=== PATIENT | female | born 1950 | race Caucasian/White ===

== ENCOUNTER 2017-06-20 14:14 | Inpatient (IN) ==
[2017-06-20 14:46] LABS: Hemoglobin 11.8 g/dL (11.5-15.4); Mean Corpuscular HGB Conc 30.3 g/dL (31.6-35.5); Mean Corpuscular Hemoglobin 26.5 pg (28.0-33.3); Mean Corpuscular Volume 87.4 fL (83.0-100.0); Mean Platelet Volume 9.3 fL (9.4-12.4); Platelet Count 269 K/mcL (140-400); Red Blood Count 4.46 M/mcL (3.82-4.97); Red Cell Distribution Width 12.6 % (11.5-14.5)
--- NOTE | 2017-06-20 14:51 | Emergency Department Note ---
Disposition Clinical Impression: Community acquired pneumonia Disposition: Admitted As Inpatient Condition: Fair SOB HPI - General Chief Complaint: ED Shortness of Breath/Dyspnea Stated Complaint: HANK Time Seen by Provider: 06/20/17 14:27 Source: patient Limitations: no limitations Vital Signs Reviewed: Yes - History of Present Illness Patient is a 67-year-old female past medical history of CHF and on coumadin presented to the ED by request of Dr. Da Silva after an abnormal chest x-ray possible right middle lobe pneumonia. For the past 1.5 weeks , patient has been having increased shortness of breath, productive cough with white sputmum and chest pain worse with exertion. Today patient went to see her hat braider Dr. Da Silva this morning who did a CXR. Edema of her LEs has not been worst recently. Today she admits to increased shortness of breath at rest. Patient has not recently been to health care facility or hospitalized. Patient currently denies fever, hemoptysis, chest pain, dizziness, dysuria, hematuria, nausea, headache, melena. - Related Data Home Medications Medication Instructions Recorded Confirmed Furosemide [Lasix] 40 mg PO DAILY 05/23/17 05/23/17 Metoprolol [Lopressor] 150 mg PO BID 05/23/17 05/23/17 Potassium Chloride 20 meq PO DAILY 05/23/17 05/23/17 Warfarin [Coumadin] 5 mg PO DAILY 05/23/17 05/23/17 Allergies Allergy/AdvReac Type Severity Reaction Status Date / Time Sulfa (Sulfonamide AdvReac Unknown Nausea Verified 05/23/17 09:23 Antibiotics) aspirin AdvReac Nausea Verified 05/23/17 09:23 Constitutional: Reports: chills. Denies: fever Cardiovascular: Denies: chest pain Respiratory: Reports: cough, sputum production. Denies: wheezes Genitourinary: Denies: dysuria, hematuria Integumentary: Denies: rash Neurological: Denies: headache Past Medical History - Past Medical History Medical history: Reports: CHF, hypertension, other Surgical history: Reports: cholecystectomy, heart valve replacement, hysterectomy Psychiatric history: Reports: no psych history SEARCH DEVELOPER history: Reports: no SEARCH DEVELOPER history - Social History Smoking Status: Former smoker Smokeless Tobacco Status: No Alcohol use: Reports: none Drug use: Reports: none Physical Exam Constitutional: Alert, in no acute distress, well nourished, well developed. Head: Normocephalic, atraumatic, normal contour and symmetric, no masses, lesions or scars Heart: Normal, regular rate and rhythm, no murmurs Lungs: decrease lung sounds on R, L crackles present, no wheezes, rales, or rhonchi Abdomen: Soft, nondistended, nontender, and no masses palpable, bowel sounds present and normal, no guarding or rigidity. Extremities: +1 pitting edema No clubbing, cyanosis, radial pulse +2/4, capillary refill <2sec. Skin: Skin warm and dry, no lesions, no rashes, no jaundice Neurologic: Cranial nerves II through XII grossly intact, no focal deficits, strength within normal limits in all extremities Psych: Cooperative with exam, good eye contact, cognitive function intact, judgment good insight good, speech clear, thought process logical, and goal directed - General Limitations: no limitations General appearance: alert Course Course Narrative: Patient's CXR from earlier today showed a right middle lobe opacification. Patient's labs showed WBCs of 6.7 but segmented neutrophils of 66%, and a BNP of 191 suggesting that the increase SOB is most likely due to pneumonia and not CHF. D-dimer was negative and therefore she does not have a PE. Sputum cultures were obtained and ceftriaxone 1 mg and Zithromax 500 mg given for community acquired pneumonia. Due to patient's hypoxia with minimum exertion patient will be admitted to the floor for community-acquired pneumonia and hypoxia. Vital Signs Temperature 97.5 F L 06/20/17 14:20 Pulse Rate 70 06/20/17 14:20 Respiratory Rate 20 06/20/17 14:20 Blood Pressure 157/4 06/20/17 14:20 O2 Sat by Pulse Oximetry 95 06/20/17 14:20 Temperature 97.5 F L 06/20/17 14:20 Pulse Rate 70 06/20/17 14:20 Respiratory Rate 18 06/20/17 17:43 Blood Pressure 154/93 06/20/17 17:43 O2 Sat by Pulse Oximetry 06/20/17 14:20 Oxygen Delivery Oxygen Delivery Room Air Shortness of Breath/Dyspnea - Medical Records Medical records reviewed: Yes I reviewed the patient's medical records. cxr today right middle lobe opacity. - Lab Data Lab results reviewed: Yes I reviewed the patient's lab results. Lab results narrative: All Lab Results (24 Hours) 06/20/17 06/20/17 06/20/17 Range/Units 14:39 14:39 14:39 WBC 6.7 (4.3-11.1) K/mcL RBC 4.46 (3.82-4.97) M/mcL Hgb 11.8 (11.5-15.4) g/dL Hct 39.0 (35.3-44.9) % MCV 87.4 (83.0-100.0) fL MCH 26.5 L (28.0-33.3) pg MCHC 30.3 L (31.6-35.5) g/dL RDW 12.6 (11.5-14.5) % Plt Count 269 (140-400) K/mcL MPV 9.3 L (9.4-12.4) fL Seg Neutrophils % 66.0 % Lymphocytes % 26.0 % Monocytes % 8.0 % Neutrophils # 4.4 (1.6-8.9) K/mcL Lymphocytes # 1.7 (0.6-4.6) K/mcL Monocytes # 0.5 (0.0-1.3) K/mcL Reactive Lymphocytes Present A (Not Present) Platelet Estimate Normal (Normal) Immature Plt Fraction 3.0 (1.1-6.1) % Sodium 132 L (136-145) mEq/L Potassium 3.8 (3.5-4.5) mEq/L Chloride 95 L (98-109) mEq/L Carbon Dioxide 34 H (19-29) mEq/L BUN 11 (7-20) mg/dL Creatinine 0.81 (0.57-1.11) mg/dL Est GFR ( Amer) > 60 (> 60) Est GFR (Non-Af Amer) > 60 (> 60) BUN/Creatinine Ratio 14 (6-26) Glucose 99 (70-99) mg/dL Calculated Osmolality 273 L (280-300) Calcium 8.9 (8.6-10.8) mg/dL Troponin I 0.01 (0-0.03) ng/mL B-Natriuretic Peptide (0-100) pg/mL 06/20/17 Range/Units 14:39 WBC (4.3-11.1) K/mcL RBC (3.82-4.97) M/mcL Hgb (11.5-15.4) g/dL Hct (35.3-44.9) % MCV (83.0-100.0) fL MCH (28.0-33.3) pg MCHC (31.6-35.5) g/dL RDW (11.5-14.5) % Plt Count (140-400) K/mcL MPV (9.4-12.4) fL Seg Neutrophils % % Lymphocytes % % Monocytes % % Neutrophils # (1.6-8.9) K/mcL Lymphocytes # (0.6-4.6) K/mcL Monocytes # (0.0-1.3) K/mcL Reactive Lymphocytes (Not Present) Platelet Estimate (Normal) Immature Plt Fraction (1.1-6.1) % Sodium (136-145) mEq/L Potassium (3.5-4.5) mEq/L Chloride (98-109) mEq/L Carbon Dioxide (19-29) mEq/L BUN (7-20) mg/dL Creatinine (0.57-1.11) mg/dL Est GFR ( Amer) (> 60) Est GFR (Non-Af Amer) (> 60) BUN/Creatinine Ratio (6-26) Glucose (70-99) mg/dL Calculated Osmolality (280-300) Calcium (8.6-10.8) mg/dL Troponin I (0-0.03) ng/mL B-Natriuretic Peptide 191 H (0-100) pg/mL Result diagrams: 06/20/17 14:39 06/20/17 14:39 Lab Results 06/20/17 06/20/17 06/20/17 Range/Units 14:39 14:39 14:39 WBC 6.7 (4.3-11.1) K/mcL RBC 4.46 (3.82-4.97) M/mcL Hgb 11.8 (11.5-15.4) g/dL Hct 39.0 (35.3-44.9) % MCV 87.4 (83.0-100.0) fL MCH 26.5 L (28.0-33.3) pg MCHC 30.3 L (31.6-35.5) g/dL RDW 12.6 (11.5-14.5) % Plt Count 269 (140-400) K/mcL MPV 9.3 L (9.4-12.4) fL Seg Neutrophils % 66.0 % Lymphocytes % 26.0 % Monocytes % 8.0 % Neutrophils # 4.4 (1.6-8.9) K/mcL Lymphocytes # 1.7 (0.6-4.6) K/mcL Monocytes # 0.5 (0.0-1.3) K/mcL Reactive Lymphocytes Present A (Not Present) Platelet Estimate Normal (Normal) Immature Plt Fraction 3.0 (1.1-6.1) % D-Dimer (0-500) ng/mLFEU Sodium 132 L (136-145) mEq/L Potassium 3.8 (3.5-4.5) mEq/L Chloride 95 L (98-109) mEq/L Carbon Dioxide 34 H (19-29) mEq/L BUN 11 (7-20) mg/dL Creatinine 0.81 (0.57-1.11) mg/dL Est GFR ( Amer) > 60 (> 60) Est GFR (Non-Af Amer) > 60 (> 60) BUN/Creatinine Ratio 14 (6-26) Glucose 99 (70-99) mg/dL Calculated Osmolality 273 L (280-300) Calcium 8.9 (8.6-10.8) mg/dL Troponin I 0.01 (0-0.03) ng/mL B-Natriuretic Peptide (0-100) pg/mL 06/20/17 06/20/17 Range/Units 14:39 14:39 WBC (4.3-11.1) K/mcL RBC (3.82-4.97) M/mcL Hgb (11.5-15.4) g/dL Hct (35.3-44.9) % MCV (83.0-100.0) fL MCH (28.0-33.3) pg MCHC (31.6-35.5) g/dL RDW (11.5-14.5) % Plt Count (140-400) K/mcL MPV (9.4-12.4) fL Seg Neutrophils % % Lymphocytes % % Monocytes % % Neutrophils # (1.6-8.9) K/mcL Lymphocytes # (0.6-4.6) K/mcL Monocytes # (0.0-1.3) K/mcL Reactive Lymphocytes (Not Present) Platelet Estimate (Normal) Immature Plt Fraction (1.1-6.1) % D-Dimer < 215 (0-500) ng/mLFEU Sodium (136-145) mEq/L Potassium (3.5-4.5) mEq/L Chloride (98-109) mEq/L Carbon Dioxide (19-29) mEq/L BUN (7-20) mg/dL Creatinine (0.57-1.11) mg/dL Est GFR ( Amer) (> 60) Est GFR (Non-Af Amer) (> 60) BUN/Creatinine Ratio (6-26) Glucose (70-99) mg/dL Calculated Osmolality (280-300) Calcium (8.6-10.8) mg/dL Troponin I (0-0.03) ng/mL B-Natriuretic Peptide 191 H (0-100) pg/mL - Radiology Data Radiology results reviewed: Yes I reviewed the patient's radiology results. - EKG Data EKG attestation: Yes I reviewed and interpreted this EKG. EKG shows normal: Reports: sinus rhythm Rate: Reports: normal Rhythm: Reports: NSR Sargent/QRS: Reports: normal, LBBB When compared to previous EKG there are: no significant changes Interpretation: Reports: unchanged when compared to prior tracing (date) (When compared to 04/15, ST elevated is present and unchanged in both. )
[2017-06-20 14:57] LABS: BUN/Creatinine Ratio 14 (6-26); Blood Urea Nitrogen 11 mg/dL (7-20); Calcium 8.9 mg/dL (8.6-10.8); Carbon Dioxide 34 mEq/L (19-29); Chloride 95 mEq/L (98-109); Glucose 99 mg/dL (70-99); Osmolality,Calculated 273 (280-300); Potassium 3.8 mEq/L (3.5-4.5); Sodium 132 mEq/L (136-145); eGFR For African Americans > 60 (> 60); eGFR For Non-African Americans > 60 (> 60)
[2017-06-20 15:19] LABS: Lymphocytes # 1.7 K/mcL (0.6-4.6); Monocytes # 0.5 K/mcL (0.0-1.3); Neutrophils # 4.4 K/mcL (1.6-8.9)
[2017-06-20 15:20] LABS: Platelet Estimate Normal (Normal); Reactive Lymphocytes Present (Not Present)
--- NOTE | 2017-06-20 15:31 | Emergency Department Note ---
START Narrative - START START: I examined this patient and my medical decision-making was reviewed with the [employer] RE[employer] LABORER/PA/Advanced Practice Nurse/Resident Physician. I agree with the documented findings, disposition and treatment plan as described except to the extent set forth below. She has shortness of breath for the last 1 month which is worse the last several days but she does not have orthopnea or paroxysmal nocturnal dyspnea. Does have bilateral leg pain with minimal peripheral edema pretibial pitting and the legs are symmetric without erythema or any evidence of infection. She has been having exertional chest pain which is concerning however her troponin test is negative and I did review her EKG which shows evidence of left bundle branch block at a rate of 68 which is a normal sinus rhythm. CTA of the chest will be done at the chest x-ray suggestive of a right middle lobe infiltrate she does have a productive cough however does have chills but no fever so we will attempt to further define and confirm the community acquired pneumonia as a diagnosis. Finally, the patient has not recently been admitted to healthcare facility and she does not drink alcohol. Stopped smoking 40 years ago. [id number]
[2017-06-20] MEDS ORDERED: Azithromycin 500 MG in D5% in Water 250 ML IVPB ONE (16:59)
[2017-06-20] MEDS: Ondansetron 4 MG/2 ML VIAL IVP PRN (21:09)
[2017-06-20] MEDS: Pantoprazole 40 MG VIAL IVP SCH (21:09)
[2017-06-20] MEDS ORDERED: Furosemide 40 MG/4 ML VIAL IVP ONE (21:47)
[2017-06-20] MEDS ORDERED: Acetaminophen 325 MG TABLET PO PRN (21:48)
[2017-06-20] MEDS ORDERED: Mag Hydrox/Al Hydrox/Simeth 30 ML UDC PO PRN (21:48)
[2017-06-20] MEDS ORDERED: Naloxone 0.4 MG/ML INJ IVP PRN (21:48)
--- NOTE | 2017-06-20 21:57 | Internal Med History&Physical ---
Date of Encounter: 06/20/17 Time of Encounter: 20:00 Assessment and Plan (1) Community acquired pneumonia Current visit: Yes Status: Acute Pending sputum culture, urine Legionella and streptococcal antigens, will treat pneumonia with azithromycin and Rocephin. CT of the chest ordered to determine if bronchial obstruction is present as suggested by the chest x-ray. Duonebs and mucinex ordered at this time. Supplemental oxygen ordered as needed. Qualifiers: Laterality: right Lung location: middle lobe of lung Qualified Code(s): J18.1 - Lobar pneumonia, unspecified organism (2) CHF exacerbation Current visit: Yes Status: Acute History of CHF with preserved EF. Mild exacerbation. Given 4-5 lb weight gain and lower extremity edema, will order one-time dose of Lasix 40 x 1, and will resume home PO dose of lasix in the morning. Daytime hospitalist to reassess need for further IV diuretics, in the a.m. Repeat ECHO in the a.m. Qualifiers: Congestive heart failure type: unspecified congestive heart failure type Qualified Code(s): I50.9 - Heart failure, unspecified (3) Mechanical heart valve present Current visit: No Status: Chronic Continue Coumadin with pharmacy to dose based on daily INRs. Internal Medicine - H&P: HPI Chief complaint: cough x 1 month Admitted From: Emergency Dept Plans for Post Hospital Care: Home History of present illness: Ms. Reynaga is a 67 year old female with PMH mechanical mitral valve on Coumadin, CHF with preserved EF who presents with one month duration of cough and generalized malaise. She states that she has not been hospitalized in the last several months and has not been on any antibiotics. She is not sure if it started off as an upper respiratory infection because she "always has trouble with sinuses." She has been expectorating white sputum. Admits to chills but denies fevers. Also endorses lower extremity swelling and abdominal swelling with a 4-5 pound weight gain in the past month. She had a routine follow up with her mail carrier Dr. Da Silva who performed a chest x-ray which revealed a right middle lobe pneumonia. She was advised to go to the ED due to these chest x-ray results. Upon receipt of azithromycin and Rocephin in the ED, patient experienced nausea and upset stomach. 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 Past Med Surg Social Fam HX - Past Medical History Medical history: CHF, hypertension, other Psychiatric history: no psych history - Past Surgical History Surgical History: cholecystectomy, heart valve replacement, hysterectomy - Social History Smoking Status: Former smoker Smokeless Tobacco Status: No Alcohol use: none Drug use: none - Family History Father Living Status: Mother Living Status: Internal Medicine - H&P: Meds Furosemide [Lasix] 40 mg PO DAILY 05/23/17 [History] Metoprolol [Lopressor] 150 mg PO BID 05/23/17 [History] Potassium Chloride 20 meq PO DAILY 05/23/17 [History] Warfarin [Coumadin] 5 mg PO DAILY 05/23/17 [History] 3 Allergy/AdvReac Type Severity Reaction Status Date / Time Sulfa (Sulfonamide AdvReac Unknown Nausea Verified 05/23/17 09:23 Antibiotics) aspirin AdvReac Nausea Verified 05/23/17 09:23 All Systems PM: A 10-system review of systems was performed and is negative for pertinent findings except as documented above in the HPI. - Constitutional Constitutional: as per HPI, malaise - EENT Nose, mouth and throat: sinus pressure Additional comments: chronic sinus symptoms - Cardiovascular Cardiovascular ROS IM: dyspnea, no chest pain - Respiratory Respiratory: as per HPI, no change in phlegm color - Gastrointestinal Gastrointestinal: bloating - Endocrine Endocrine IM: no excessive sweating - Constitutional Vitals: Temp Pulse Resp BP Pulse Ox 97.4 F L 80 16 128/63 92 06/20/17 18:48 06/20/17 18:48 06/20/17 18:48 06/20/17 18:48 06/20/17 18:48 General appearance: Present: A&O X 3 Exam: somewhat drowsy and ill, but non-toxic in appearance. - ENT ENT exam: Present: mucous membranes moist - Respiratory Respiratory exam: Present: rhonchi (RLL). Absent: accessory muscle use, respiratory distress, tachypnea - Cardiovascular Cardiovascular exam: Present: +S1, +S2 Additional comments: systolic murmur appreciated - GI/Abdominal GI/Abdominal exam: Present: distended, normal bowel sounds, soft, no peritoneal signs. Absent: hepatomegaly, splenomegaly, tenderness - Extremities Exam Additional comments: 1+ pitting pretibial edema in bilateral lower extremities - Psychiatric Psychiatric exam: Present: flat affect Internal Med - H&P Results - Labs CBC & Chem 7: 06/20/17 14:39 06/20/17 14:39
[2017-06-20] MEDS: Ipratropium/Albuterol Neb 3 ML IH SCH (22:26)
[2017-06-20 22:56] LABS: INR 3.2
[2017-06-20] MEDS: Metoprolol 100 MG TABLET PO SCH (23:03)
[2017-06-20] MEDS: Azithromycin 500 MG in D5% in Water 250 ML IVPB SCH (23:08)
[2017-06-21] MEDS: Ipratropium/Albuterol Neb 3 ML IH SCH ×2 (03:59→11:00)
[2017-06-21 05:06] LABS: Basophils % 0.4 %; Eosinophils # 0.1 K/mcL (0.0-0.6); Eosinophils % 1.7 %; Hematocrit 37.5 % (35.3-44.9); Hemoglobin 11.3 g/dL (11.5-15.4); Immature Granulocytes % 0.3 % (0-4); Lymphocytes # 1.9 K/mcL (0.6-4.6); Lymphocytes % 27.5 %; Mean Corpuscular HGB Conc 30.1 g/dL (31.6-35.5); Mean Corpuscular Hemoglobin 26.5 pg (28.0-33.3); Mean Platelet Volume 9.8 fL (9.4-12.4); Monocytes # 0.7 K/mcL (0.0-1.3); Monocytes % 9.8 %; Neutrophils # 4.2 K/mcL (1.6-8.9); Platelet Count 248 K/mcL (140-400); Red Blood Count 4.26 M/mcL (3.82-4.97); Red Cell Distribution Width 12.8 % (11.5-14.5); Segmented Neutrophils % 60.3 %
[2017-06-21 05:14] LABS: INR 3.6; Prothrombin Time 40.4 Seconds (9.4-12.1)
[2017-06-21 05:21] LABS: Alanine Aminotransferase 13 Units/L (0-55); Albumin 3.2 g/dL (3.5-5.0); Alkaline Phosphatase 70 Units/L (38-126); Aspartate Amino Transferase 18 Units/L (5-34); BUN/Creatinine Ratio 14 (6-26); Blood Urea Nitrogen 9 mg/dL (7-20); Calcium 8.1 mg/dL (8.6-10.8); Carbon Dioxide 35 mEq/L (19-29); Chloride 94 mEq/L (98-109); Globulin 3.1 g/dL (2.4-3.5); Glucose 94 mg/dL (70-99); Osmolality,Calculated 276 (280-300); Potassium 3.7 mEq/L (3.5-4.5); Sodium 134 mEq/L (136-145); Total Protein 6.3 g/dL (6.0-8.3); eGFR For African Americans > 60 (> 60); eGFR For Non-African Americans > 60 (> 60)
[2017-06-21 05:28] LABS: Bilirubin,Total < 0.3 mg/dL (0.2-1.2)
[2017-06-21] MEDS: Pantoprazole 40 MG VIAL IVP SCH (06:08)
[2017-06-21] MEDS: Ondansetron 4 MG/2 ML VIAL IVP PRN (06:15)
[2017-06-21] MEDS ORDERED: *HR* Warfarin 5 MG TABLET PO SCH (09:00)
[2017-06-21] MEDS: Furosemide 40 MG TABLET PO SCH (10:16)
[2017-06-21] MEDS: Metoprolol 100 MG TABLET PO SCH ×2 (10:17→20:07)
--- NOTE | 2017-06-21 11:58 | Internal Med Progress Note ---
<RobertYara coelho - Last Filed: 06/21/17 16:28> Date of Encounter: 06/21/17 Time of Encounter: 11:56 - Assessment and plan (1) Community acquired pneumonia Current Visit: Yes Status: Acute Assessment and plan: Chest CT showed consolidation involving medial right lower lobe Plan: legionella and strep pneumo culture pending sputum culture pending DuoNebs PRN continue azithromycin and rocephin Qualifiers: Laterality: right Lung location: middle lobe of lung Qualified Code(s): J18.1 - Lobar pneumonia, unspecified organism (2) CHF (congestive heart failure) Current Visit: Yes Status: Acute Assessment and plan: echo from 06/21/17 showed LVEF 65-70%, normal LV size and systolic function, mild concentric LVH, severe basal septal hypertrophy, no LVOT obstruction, dilated RV with normal function, well seated mechanical mitral valve, prosthetic stenosis, moderate tricuspid regurg, mild pulmonic regurg, severe pulmonary HTN continue home meds Qualifiers: Congestive heart failure type: diastolic Congestive heart failure chronicity: chronic Qualified Code(s): I50.32 - Chronic diastolic (congestive ) heart failure (3) Mechanical heart valve present Current Visit: No Status: Chronic Assessment and plan: continue warfarin. pharmacy to dose. (4) DVT prophylaxis Current Visit: Yes Status: Acute Assessment and plan: patient on warfarin. - Time Spent With Patient less than 15 minutes - Subjective Interval history: 67 year old female evaluated at bedside. patient denies nausea, vomiting, diarrhea, fever, chills, chest pain, shortness of breath. she admits to some cough without sputum production. she denies any further complaints today. - Constitutional Vitals: Temp Pulse Resp BP Pulse Ox 97.6 F 67 18 143/77 93 06/21/17 11:35 06/21/17 11:35 06/21/17 11:35 06/21/17 11:35 06/21/17 11:35 General appearance: Present: A&O X 3, no acute distress, answers questions appropriately - Head Head exam: Present: atraumatic, normocephalic - Respiratory Additional comments: mild upper lobe rales present bilaterally. - Cardiovascular Cardiovascular exam: Present: RRR, +S1, +S2 Additional comments: mid systolic click noted. - GI/Abdominal GI/Abdominal exam: Present: soft, tenderness (mild epigastric tenderness noted. ). Absent: distended - Extremities Exam Extremities exam: Absent: cyanotic, pedal edema - Neurological Exam Neurological exam: Present: alert, oriented X3, no focal deficits - Skin Skin exam: Present: intact Internal Medicine: Result - Labs CBC & Chem 7: 06/21/17 04:52 06/21/17 04:52 Labs: Short CBC 06/21/17 Range/Units 04:52 WBC 6.9 (4.3-11.1) K/mcL Hgb 11.3 L (11.5-15.4) g/dL Hct 37.5 (35.3-44.9) % Plt Count 248 (140-400) K/mcL Neutrophils # 4.2 (1.6-8.9) K/mcL BMP 06/21/17 04:52 Sodium 134 L Potassium 3.7 Chloride 94 L Carbon Dioxide 35 H BUN 9 Creatinine 0.65 Glucose 94 Calcium 8.1 L Liver Function 06/21/17 Range/Units 04:52 Total Bilirubin < 0.3 (0.2-1.2) mg/dL AST 18 (5-34) Units/L ALT 13 (0-55) Units/L Alkaline Phosphatase 70 (38-126) Units/L Albumin 3.2 L (3.5-5.0) g/dL - ABG Interpretation ABG results: PT/INR, D-dimer PT 40.4 Seconds (9.4-12.1) H 06/21/17 04:52 D-Dimer < 215 ng/mLFEU (0-500) 06/20/17 14:39 - Impressions Impressions Chest CT 06/21/17 07:30 IMPRESSION: Small consolidation involving the medial right lower lobe is concerning for pneumonia in the appropriate clinical setting. Continued imaging follow-up to ensure resolution is recommended. D/ / Benito Cabrales / Benito Cabrales Interpreting Provider: Benito Cabrales Consult Discharge Plan - Plan Referrals: NONE,PCP [Primary Care Provider] - <Ramírez Farnsworth P - Last Filed: 06/21/17 20:18> Date of Encounter: 06/21/17 - Constitutional Vitals: Temp Pulse Resp BP Pulse Ox 98 F 75 16 132/76 90 06/21/17 19:12 06/21/17 19:12 06/21/17 19:12 06/21/17 19:12 06/21/17 19:12 Internal Medicine: Result - Labs CBC & Chem 7: 06/21/17 04:52 06/21/17 04:52 Labs: Short CBC 06/21/17 Range/Units 04:52 WBC 6.9 (4.3-11.1) K/mcL Hgb 11.3 L (11.5-15.4) g/dL Hct 37.5 (35.3-44.9) % Plt Count 248 (140-400) K/mcL Neutrophils # 4.2 (1.6-8.9) K/mcL BMP 06/21/17 04:52 Sodium 134 L Potassium 3.7 Chloride 94 L Carbon Dioxide 35 H BUN 9 Creatinine 0.65 Glucose 94 Calcium 8.1 L Liver Function 06/21/17 Range/Units 04:52 Total Bilirubin < 0.3 (0.2-1.2) mg/dL AST 18 (5-34) Units/L ALT 13 (0-55) Units/L Alkaline Phosphatase 70 (38-126) Units/L Albumin 3.2 L (3.5-5.0) g/dL - ABG Interpretation ABG results: PT/INR, D-dimer PT 40.4 Seconds (9.4-12.1) H 06/21/17 04:52 D-Dimer < 215 ng/mLFEU (0-500) 06/20/17 14:39 - Impressions Impressions Chest CT 06/21/17 07:30 IMPRESSION: Small consolidation involving the medial right lower lobe is concerning for pneumonia in the appropriate clinical setting. Continued imaging follow-up to ensure resolution is recommended. D/ / Benito Cabrales / Benito Cabrales Interpreting Provider: Benito Cabrales - Attending Attestation I examined this patient and my medical decision-making was reviewed with the Resident Physician. I agree with the documented findings, disposition and treatment plan as described except to the extent set forth below.
[2017-06-21] MEDS ORDERED: Ipratropium/Albuterol Neb 3 ML IH PRN (14:46)
--- NOTE | 2017-06-21 17:00 | Electrocardiograph Report ---
[place] [id number] Test Date: 2017-06-20 Pat Name: Rosy Reynaga Department: 0 Room: 2A26 Gender: F Consulting Analyst: : [id number] Requested By: Everardo Baron Order Number: [id number] Reading MD: Larissa Elizabeth Measurements Intervals [place] Rate: 68 P: 26 IA: 188 QRS: -8 QRSD: 150 T: 131 QT: 438 QTc: 455 Interpretive Statements SINUS RHYTHM LEFT BUNDLE BRANCH BLOCK Electronically Signed On 06-21-2017 16:59:16 EDT by Larissa Elizabeth
[2017-06-21] MEDS ORDERED: *HR* Warfarin 2.5 MG TABLET PO ONE (18:00)
[2017-06-21] MEDS ORDERED: Warfarin perPT PO PRN (18:00)
[2017-06-21] MEDS: Azithromycin 500 MG in D5% in Water 250 ML IVPB SCH (22:09)
[2017-06-22] MEDS: Ondansetron 4 MG/2 ML VIAL IVP PRN (00:17)
[2017-06-22 04:15] LABS: Basophils % 0.3 %; Eosinophils # 0.1 K/mcL (0.0-0.6); Eosinophils % 1.4 %; Hematocrit 36.4 % (35.3-44.9); Hemoglobin 10.8 g/dL (11.5-15.4); Immature Granulocytes % 0.2 % (0-4); Lymphocytes # 1.3 K/mcL (0.6-4.6); Lymphocytes % 12.9 %; Mean Corpuscular HGB Conc 29.7 g/dL (31.6-35.5); Mean Corpuscular Hemoglobin 26.7 pg (28.0-33.3); Mean Corpuscular Volume 90.1 fL (83.0-100.0); Mean Platelet Volume 10.2 fL (9.4-12.4); Monocytes # 0.7 K/mcL (0.0-1.3); Platelet Count 243 K/mcL (140-400); Red Blood Count 4.04 M/mcL (3.82-4.97); Red Cell Distribution Width 12.7 % (11.5-14.5); Segmented Neutrophils % 78.2 %
[2017-06-22 04:17] LABS: INR 3.2; Prothrombin Time 35.8 Seconds (9.4-12.1)
[2017-06-22 04:25] LABS: BUN/Creatinine Ratio 19 (6-26); Blood Urea Nitrogen 13 mg/dL (7-20); Calcium 8.5 mg/dL (8.6-10.8); Carbon Dioxide 37 mEq/L (19-29); Chloride 91 mEq/L (98-109); Glucose 110 mg/dL (70-99); Osmolality,Calculated 275 (280-300); Sodium 132 mEq/L (136-145); eGFR For African Americans > 60 (> 60); eGFR For Non-African Americans > 60 (> 60)
[2017-06-22 07:16] VITALS: BP 145/78
[2017-06-22] MEDS: Furosemide 40 MG TABLET PO SCH (09:42)
[2017-06-22] MEDS: Metoprolol 100 MG TABLET PO SCH (09:42)
--- NOTE | 2017-06-22 09:53 | Discharge Summary ---
<RubyusLinaisaiah - Last Filed: 06/22/17 12:34> Date of Encounter: 06/22/17 Time of Encounter: 09:31 - Discharge Diagnosis (1) Community acquired pneumonia Priority: Primary Status: Acute Qualifiers: Laterality: right Lung location: middle lobe of lung Qualified Code(s): J18.1 - Lobar pneumonia, unspecified organism (2) CHF (congestive heart failure) Priority: Secondary Status: Acute Qualifiers: Congestive heart failure type: diastolic Congestive heart failure chronicity: chronic Qualified Code(s): I50.32 - Chronic diastolic (congestive ) heart failure (3) Mechanical heart valve present Priority: Secondary Status: Chronic (4) DVT prophylaxis Priority: Secondary Status: Acute - Discharge Medications Prescriptions: Azithromycin [Zithromax Tri-Shahid] 500 mg PO Q24H #3 tablet Cefdinir [Omnicef] 300 mg PO BID #10 capsule Home Medications: Furosemide [Lasix] 40 mg PO DAILY 05/23/17 [History] Metoprolol [Lopressor] 150 mg PO BID 05/23/17 [History] Potassium Chloride 20 meq PO DAILY 05/23/17 [History] Warfarin [Coumadin] 5 mg PO SUMOWETHFRSA@1800 05/23/17 [History] Warfarin [Coumadin] 7.5 mg PO TU@1800 06/21/17 [History] Azithromycin [Zithromax Tri-Shahid] 500 mg PO Q24H #3 tablet 06/22/17 [Rx] Cefdinir [Omnicef] 300 mg PO BID #10 capsule 06/22/17 [Rx] Allergies/Adverse Reactions: 3 Allergy/AdvReac Type Severity Reaction Status Date / Time Sulfa (Sulfonamide AdvReac Unknown Nausea Verified 05/23/17 09:23 Antibiotics) aspirin AdvReac Nausea Verified 05/23/17 09:23 Date of admission: 06/20/17 23:06 Primary care physician: PCP NONE - Patient Status Disposition: Home, Self-Care Condition: Good Functional capacity at discharge: independent ambulation Overall status at discharge: patient is progressing back to baseline - Discharge Instructions Follow Up With: NONE,PCP [Primary Care Provider] - [facility] [Outside] Additional Instructions: Follow up with Primary care doctor within one week of discharge. Please finish antibiotic course as prescribed. Follow up with your motorcycle fabricator within one week of discharge (patient sees Dr. Da Silva) for possible further imaging. Please return to the emergency department if you develop increasing shortness of breath, nausea, vomiting, diarrhea, fever, chills, or chest pain. follow up with coumadin clinic as regularly scheduled. - Diet and Activity Activity: increase activity as tolerated Diet: low fat, low cholesterol, low salt diet Hospital course: Ms. Reynaga is a 67 year old female with PMHx of mechanical mitral valve ( on coumadin), CHF with preserved EF, HTN. Patient arrived to [facility] on 06/20/17 with chief complaint of cough and generalized malaise, and cough with white sputum production. She was sent to ED from motorcycle fabricator Dr. Da Silva's office because of CXR which revealed pneumonia. She was admitted to the hospital for further workup and treatment. chest CT showed small consolidation involving the medial lower lobe consistent with pneumonia. she was placed on antibiotics. She had also received a dose of lasix due to signs of fluid overload upon initial presentation. patient had repeat echo done which showed LVEF 65-70%, normal LV size and systolic function, mild concentric LVH with severe basal septal hypertrophy, no LVOT, dilated RV, well seated mechanical mitral valve without visualization of occular mobility, prosthetic stenosis, severe pulmonary hypertension. IT is recommended that patient follow up with motorcycle fabricator for echo findings for possible REBECCA and further workup. Patient's breathing continued to improve during her hospital stay, and she was discharged with a complete course of antibiotics for her pneumonia. patient was stable throughout the course of her hospital stay and remained stable upon discharge. Follow up with Primary care doctor within one week of discharge. Please finish antibiotic course as prescribed. Follow up with your motorcycle fabricator within one week of discharge (patient sees Dr. Da Silva) for possible further imaging for echo results. Please return to the emergency department if you develop increasing shortness of breath, nausea, vomiting, diarrhea, fever, chills, or chest pain. follow up with coumadin clinic as regularly scheduled. - Time Spent with Patient Total time spent providing and/or coordinating discharge services: - Constitutional Vitals: Temp Pulse Resp BP Pulse Ox 98.3 F 68 16 145/78 90 06/22/17 07:14 06/22/17 07:14 06/22/17 07:14 06/22/17 07:14 08/19/17 07:14 General appearance: Present: A&O X 3, no acute distress, answers questions appropriately - Head Head exam: Present: atraumatic, normocephalic - Neck Neck exam general surgery: Present: supple, trachea midline - Respiratory Additional comments: mild rales in lower lobes bilaterally. - Cardiovascular Cardiovascular exam: Present: RRR, +S1 Additional comments: grade 3/6 systolic murmur noted - GI/Abdominal GI/Abdominal exam: Present: normal bowel sounds, soft. Absent: distended, tenderness - Extremities Exam Extremities exam: Absent: cyanotic, pedal edema - Neurological Exam Neurological exam: Present: alert, oriented X3, no focal deficits - Psychiatric Psychiatric exam: Present: normal affect, normal mood - Skin Skin exam: Present: intact <Daja,Ramírez P - Last Filed: 06/22/17 15:28> Date of Encounter: 06/22/17 Date of admission: 06/20/17 23:06 Primary care physician: PCP NONE Hospital course: Ms. Reynaga is a 67 year old female - Time Spent with Patient Total time spent providing and/or coordinating discharge services: - Constitutional Vitals: Temp Pulse Resp BP Pulse Ox 98.3 F 68 16 145/78 90 06/22/17 07:14 06/22/17 07:14 06/22/17 07:14 06/22/17 07:14 06/22/17 07:14 - Attending Attestation I examined this patient and my medical decision-making was reviewed with the Resident Physician. I agree with the documented findings, disposition and treatment plan as described except to the extent set forth below.
[2017-06-22] MEDS ORDERED: *HR* Warfarin 2.5 MG TABLET PO ONE (18:00)
== END 2017-06-22 11:05 | disposition home or self-care (01) | DRG 193 ==
LOC: EMEROO 14:14 → 2ANU 14:14
PROVIDERS: ADMIT Family Medicine; ATTEND Internal Medicine